=== PATIENT | male | born 1990 | race American Indian/Alaskan Native ===

== ENCOUNTER 2016-11-07 08:58 | Emergency (ER) | payer OTHER ==
[2016-11-07 09:14] VITALS: BP 153/107
[2016-11-07] MEDS ORDERED: TORADOL IM ONE (09:33)
--- NOTE | 2016-11-07 09:33 | Emergency Department Report ---
ED General Adult HPI - General Chief complaint: Back Pain/Injury Stated complaint: LOW BACK PAIN Time Seen by Provider: 11/07/16 09:29 Source: patient Mode of arrival: Ambulatory Limitations: No Limitations - History of Present Illness Initial comments: 25-year-old male presents to the ED complaining about lower back pain with intermittent radiation to the left leg for about a week with no injury. States he's had this symptom before years ago and it resolved on its own in 2 days. Patient states taking ibuprofen with no relief. Denies flank pain, abdominal pain, nausea, vomiting, diarrhea, fever -: Gradual, days(s) (7) - Related Data Previous Rx's Medication Instructions Recorded Last Taken Type Ciprofloxacin HCl [Ciprofloxacin 500 mg PO Q12H #14 tab 09/18/15 Unknown Rx TAB] Promethazine HCl [Phenergan SUPPOS] 25 mg RC Q6H PRN #10 supp.rect 09/18/15 Unknown Rx Promethazine [Phenergan TAB] 25 mg PO Q6HR PRN #20 tab 09/18/15 Unknown Rx Cyclobenzaprine [Flexeril] 10 mg PO TID PRN #20 tablet 11/07/16 Unknown Rx Diclofenac Sodium 75 mg PO BID #20 tablet. 11/07/16 Unknown Rx Allergies Allergy/AdvReac Type Severity Reaction Status Date / Time No Known Allergies Allergy Verified 11/07/16 09:10 ED Review of Systems ROS: Stated complaint: LOW BACK PAIN Other details as noted in HPI Constitutional: denies: chills, fever Eyes: denies: eye pain, eye discharge, vision change ENT: denies: ear pain, throat pain Respiratory: denies: cough, shortness of breath, wheezing Cardiovascular: denies: chest pain, palpitations Endocrine: no symptoms reported Gastrointestinal: denies: abdominal pain, nausea, diarrhea Genitourinary: denies: urgency, dysuria Musculoskeletal: back pain. denies: joint swelling, arthralgia Skin: denies: rash, lesions Neurological: denies: headache, weakness, paresthesias Psychiatric: denies: anxiety, depression Hematological/Lymphatic: denies: easy bleeding, easy bruising ED Past Medical Hx - Past Medical History Previous Medical History?: No - Surgical History Past Surgical History?: Yes Hx Appendectomy: Yes Additional Surgical History: left testicle removed - Social History Smoking Status: Never Smoker Substance Use Type: None - Medications Home Medications: Home Medications Medication Instructions Recorded Confirmed Last Taken Type Ciprofloxacin HCl [Ciprofloxacin 500 mg PO Q12H #14 tab 09/18/15 Unknown Rx TAB] Promethazine HCl [Phenergan SUPPOS] 25 mg RC Q6H PRN #10 supp.rect 09/18/15 Unknown Rx Promethazine [Phenergan TAB] 25 mg PO Q6HR PRN #20 tab 09/18/15 Unknown Rx Cyclobenzaprine [Flexeril] 10 mg PO TID PRN #20 tablet 11/07/16 Unknown Rx Diclofenac Sodium 75 mg PO BID #20 tablet. 11/07/16 Unknown Rx ED Physical Exam - General Limitations: No Limitations General appearance: alert, in no apparent distress - Head Head exam: Present: atraumatic, normocephalic - Eye Eye exam: Present: normal appearance - ENT ENT exam: Present: mucous membranes moist - Neck Neck exam: Present: normal inspection - Respiratory Respiratory exam: Present: normal lung sounds bilaterally. Absent: respiratory distress - Cardiovascular Cardiovascular Exam: Present: regular rate, normal rhythm. Absent: systolic murmur, diastolic murmur, rubs, gallop - GI/Abdominal GI/Abdominal exam: Present: soft, normal bowel sounds - Rectal Rectal exam: Present: deferred - Extremities Exam Extremities exam: Present: normal inspection - Back Exam Back exam: Present: normal inspection, paraspinal tenderness. Absent: vertebral tenderness - Neurological Exam Neurological exam: Present: alert, oriented X3 - Psychiatric Psychiatric exam: Present: normal affect, normal mood - Skin Skin exam: Present: warm, dry, intact, normal color. Absent: rash ED Course Vital Signs 11/07/16 09:10 Temperature 98.6 F Pulse Rate 110 H Respiratory 20 Rate Blood Pressure 153/107 O2 Sat by Pulse 100 Oximetry ED Medical Decision Making - Medical Decision Making patient is resting comfortably. NAD at this time,. Critical care attestation.: If time is entered above; I have spent that time in minutes in the direct care of this critically ill patient, excluding procedure time. ED Disposition Clinical Impression: Lumbar strain Disposition: DC-01 TO HOME OR SELFCARE Is pt being admited?: No Does the pt Need Aspirin: No Condition: Good Instructions: Muscle Strain (ED) Prescriptions: Cyclobenzaprine [Flexeril] 10 mg PO TID PRN #20 tablet PRN Reason: Muscle Spasm Diclofenac Sodium 75 mg PO BID #20 tablet. Referrals: PRIMARY CAREMD [Primary Care Provider] - 3-5 Days LETICIA FINLEY MD [Staff Physician] - 3-5 Days Forms: Work/School Release Form(ED) Time of Disposition: 09:33
[2016-11-07 09:41] LABS: Hematocrit 40.3 % (35.5-45.6); Hemoglobin 13.5 gm/dl (11.8-15.2); Mean Corpuscular HGB Conc 34 % (32-34); Mean Corpuscular Hemoglobin 27 pg (28-32); Mean Corpuscular Volume 80 fl (84-94); Platelet Count 458 K/mm3 (140-440); Red Blood Count 5.06 M/mm3 (3.65-5.03); Red Cell Distribution Width 14.5 % (13.2-15.2)
[2016-11-07 09:54] LABS: Alanine Aminotransferase 188 units/L (7-56); Albumin 3.4 g/dL (3.9-5); Albumin/Globulin Ratio 0.5 %; Alkaline Phosphatase 190 units/L (35-129); Anion Gap 18 mmol/L; BUN/Creatinine Ratio 8.75; Blood Urea Nitrogen 7 mg/dL (9-20); Calcium 9.2 mg/dL (8.4-10.2); Carbon Dioxide 24 mmol/L (22-30); Chloride 96.2 mmol/L (98-107); Glucose 259 mg/dL (75-100); Potassium 4.2 mmol/L (3.6-5.0); Sodium 134 mmol/L (137-145); Total Protein 10.6 g/dL (6.3-8.2)
[2016-11-07 10:31] LABS: Blastocytes % (Manual) 0 %
[2016-11-07 10:32] LABS: Anisocytosis 1+; Basophils % (Manual) 0 % (0.0-1.8); Burr Cells Few; Diff Status Complete; Microcytosis 1+; Spherocytes Few
== END 2016-11-07 09:58 | disposition home or self-care (01) ==
LOC: ED 08:58
DX: S39.012A Strain of muscle, fascia and tendon of lower back, initial encounter (principal); X58.XXXA Exposure to other specified factors, initial encounter; Y93.9 Activity, unspecified; Y92.9 Unspecified place or not applicable; Y99.9 Unspecified external cause status
CPT/HCPCS: 36415; 80053; 85007; 85025; 96372; 99283; J1885